=== PATIENT | male | born 1950 | race Caucasian/White ===

== ENCOUNTER 2024-07-03 07:56 | Day surgery (SDC) | payer MEDICARE ==
--- NOTE | 2024-07-02 09:12 | HP ---
HISTORY AND PHYSICAL HISTORY OF PRESENT ILLNESS: The patient is a 74-year-old male who presents for endoscopy. Reports that his dad may have had colon cancer. He has no colon complaints. No upper GI complaints. He is due for colonoscopy for history of polyps. PAST MEDICAL HISTORY: Hypertension, diabetes, hyperlipidemia, BPH. MEDICATIONS: B12, tamsulosin, metformin, Losartan, lisinopril, Lipitor, glipizide. PAST SURGICAL HISTORY: Colonoscopy. FAMILY HISTORY: Possible colon cancer. SOCIAL HISTORY: Negative. ALLERGIES: Moxifloxacin. REVIEW OF SYSTEMS: CONSTITUTIONAL: Denies fever or chills. CHEST: Denies shortness of breath. CARDIOVASCULAR: Denies chest pain. ABDOMEN: Denies abdominal pain. PHYSICAL EXAMINATION: GENERAL: No acute distress. CARDIOVASCULAR: Regular rate and rhythm. RESPIRATORY: Nonlabored. No shortness of breath. ABDOMEN: Soft. ASSESSMENT: 1) History of polyps. 2) Family history of colon cancer. PLAN: Colonoscopy with Dr. Aguila Gallagher. This report was dictated for Dr. Gallagher by Clarisa Mcdonough NP.
[2024-07-03] MEDS ORDERED: Lactated Ringers 1,000 ML IV ONE (10:01)
[2024-07-03 10:11] VITALS: TEMP 97.3
[2024-07-03] MEDS: Lactated Ringers 1,000 ML IV SCH (10:35)
[2024-07-03] MEDS ORDERED: Versed 2 MG/2 ML Injection ONE (10:45)
[2024-07-03] MEDS ORDERED: DIPRIVAN 200 MG/20 ML IV ONE (10:45)
[2024-07-03] MEDS ORDERED: GlucaGen 1 MG ONE (11:06)
[2024-07-03 11:59] VITALS: RESP 18; O2SAT 96
[2024-07-03 12:02] VITALS: BP 141/79; PULSE 68
--- NOTE | 2024-07-06 19:37 | OP ---
SURGERY DATE/TIME: 07/03/2024 [id number] PREOPERATIVE DIAGNOSIS: History of polyps. POSTOPERATIVE DIAGNOSIS: No mucosal lesions today. He has moderate sigmoid diverticulosis. He has moderate internal hemorrhoids. PROCEDURE: Colonoscopy completed to cecum. SURGEON: Aguila Gallagher MD ANESTHESIA: General. COMPLICATIONS: None. CONDITION: Stable. DESCRIPTION OF PROCEDURE AND FINDINGS: Full bowel prep. Patient taken to endoscopy. General anesthetic. Routine exposure. Anal digital examination was satisfactory. Satisfactory tone. Prostate reasonably high. Scope introduced. Prostate was visible submucosally, appeared grossly normal. Anus, moderate internal hemorrhoids. Rectum satisfactory. Rectosigmoid junction satisfactory. Sigmoid, there was moderate sigmoid diverticulosis. Scope was advanced. There was a little bit spasm. Glucagon 0.5 amp was given. The scope was able to be teased over and advanced over to the cecum. Base of cecum a little bit of light stool was suctioned at this time. Ileocecal valve, appendiceal orifice, base of the cecum, trifurcation of the tenia was all visible. Starting here, the base of the cecum, ascending, hepatic, transverse, splenic, descending, sigmoid, at times we were backing up, going forward, backing up in order to get a little better mucosal view as it was a fairly wide diameter colon. In general, we got an excellent view. Descending, sigmoid, rectum, anus, moderate internal hemorrhoids. Patient tolerated the procedure satisfactory. Followup in 5 years. Findings discussed with the . Pictures were given to the .
== END 2024-07-03 12:13 | disposition home or self-care (01) ==
LOC: SDC 07:56
PROVIDERS: ATTEND Surgery
DX: Z09 Encounter for follow-up examination after completed treatment for conditions other than malignant neoplasm (principal); Z86.010 Personal history of colon polyps; Z80.0 Family history of malignant neoplasm of digestive organs; E11.9 Type 2 diabetes mellitus without complications; K57.30 Diverticulosis of large intestine without perforation or abscess without bleeding; K64.8 Other hemorrhoids
CPT/HCPCS: 82947; 93005; 99100; J1610; J2250; J2704